=== PATIENT | male | born 1995 | race Caucasian/White ===

== ENCOUNTER 2017-08-18 17:29 | Emergency (ER) | payer OTHER ==
[~2017-08-18] VITALS: Ht 162.6 cm; Wt 72.6 kg
== END 2017-08-18 19:35 | disposition home or self-care (01) ==
LOC: ER 17:29
DX: S60.211A Contusion of right wrist, initial encounter (principal); S80.01XA Contusion of right knee, initial encounter; W18.39XA Other fall on same level, initial encounter; Y93.89 Activity, other specified; Y92.813 Airplane as the place of occurrence of the external cause; Y99.8 Other external cause status